=== PATIENT | female | born 1975 | race Caucasian/White ===

== ENCOUNTER 2022-09-22 13:58 | Inpatient (IN) | payer OTHER ==
[~2022-09-22] VITALS: Ht 160 cm; Wt 77.1 kg
[2022-09-22 14:41] VITALS: BP 149/98
[2022-09-22 16:20] LABS: BASOPHILS # (AUTO) 0.1 K/uL (0.00-0.22); BASOPHILS % (AUTO) 0.8 % (0.0-2.0); EOSINOPHILS # (AUTO) 0.3 K/uL (0-0.4); EOSINOPHILS % (AUTO) 2.2 % (0.0-4.0); HEMATOCRIT 32.9 % (36-48); HEMOGLOBIN 11.1 g/dL (12.0-16.0); LYMPHOCYTES # (AUTO) 2.2 K/uL (2.5-16.5); LYMPHOCYTES % (AUTO) 18.6 % (20.5-51.1); MEAN CORPUSCULAR HEMOGLOBIN 30 pg (27-31); MEAN CORPUSCULAR HGB CONC 34 g/dL (33-37); MEAN CORPUSCULAR VOLUME 88.2 fL (80-94); MONOCYTES # (AUTO) 0.7 K/uL (0.8-1.0); MONOCYTES % (AUTO) 5.7 % (1.7-9.3); NEUTROPHILS # (AUTO) 8.4 K/uL (1.8-7.7); NEUTROPHILS % (AUTO) 72.7 % (42.2-75.2); PLATELET COUNT (AUTO) 286 K/uL (140-450); RED BLOOD CELL COUNT(AUTO) 3.73 MIL/uL (4.20-5.40); WHITE BLOOD COUNT (AUTO) 11.6 K/uL (4.8-10.8)
[2022-09-22 16:21] LABS: ALBUMIN 3.7 g/dL (3.4-5.0); ANION GAP 9.9 (8-16); ASPARTATE AMINOTRANSFERASE 16 U/L (15-37); CARBON DIOXIDE 28.4 mmol/L (21-32); CHLORIDE 103 mmol/L (98-107); CREATININE 0.8 mg/dL (0.6-1.3); GFR ARICAN-AMERICAN 99 mL/min (>90); GLUCOSE 101 mg/dL (74-106); POTASSIUM 4.3 mmol/L (3.5-5.1); SODIUM SERUM 137 mmol/L (136-145); TOTAL BILIRUBIN 0.2 mg/dL (0.0-1.0); UREA NITROGEN, BLOOD 13 mg/dL (7-18)
[2022-09-22] MEDS ORDERED: HEPARIN PER PHARMACY MC PRN (18:55)
--- NOTE | 2022-09-22 18:58 | NUR ---
AMBULATORY TO BR WITH STEADY GAIT, INDEPENDENT
[2022-09-22] MEDS ORDERED: MORPHINE SULFATE 2 MG/ML SYR IVP PRN (19:30)
[2022-09-22] MEDS ORDERED: LORazepam 2 MG/ML VIAL IVP PRN (19:30)
--- NOTE | 2022-09-22 19:30 | NUR ---
Patient resting in bed, A/Ox4, chest rise and fall symmetrical, no c/o pain or s/s of distress.
[2022-09-22] MEDS: hePARIN / DEXT 5% PREMIX 250 ML IV SCH (19:54)
[2022-09-22] MEDS: NACL 0.9% 1,000 ML IV SCH (19:55)
--- NOTE | 2022-09-22 22:03 | NUR ---
Patient resting in bed, A/Ox4, chest rise and fall symmetrical, no c/o pain or s/s of distress.
[2022-09-22] MEDS ORDERED: hydrALAZINE 20 MG/ML VIAL IVP SCH (22:10)
--- NOTE | 2022-09-22 22:10 | NUR ---
Dr. Tomlinson examining patient.
--- NOTE | 2022-09-22 22:44 | NUR ---
Dr. Ferreira called to reconfirm he wanted to admit patient to Medsurg. Dr. Ferreira verbalized to change patient to admit to telemetry. Readback confirmed
[2022-09-22] MEDS: ONDANSETRON 4 MG/2 ML VIAL IVP PRN (23:42)
--- NOTE | 2022-09-23 00:05 | NUR ---
Patient resting in bed, A/Ox4, chest rise and fall symmetrical, no c/o pain or s/s of distress.
[2022-09-23] MEDS: ACETAMINOPHEN 325 MG TAB PO PRN ×2 (01:10→08:01)
--- NOTE | 2022-09-23 01:14 | NUR ---
Patient will be admitted to care of Wendy GRIFFITHS. Admited to Telemetry. Will go to room 121B. Belongings list completed. Report to Wendy GRIFFITHS. Wendy GRIFFITHS verbalized understanding of report, no further questions.
[2022-09-23 01:16] LABS: PROTHROMBIN TIME 10.5 secs (10.8-13.4)
--- NOTE | 2022-09-23 01:30 | NUR ---
PT WAS ADMITTED TO [facility] DEPARTMENT FROM [facility] WITH DIAGNOSIS OF PULMONARY EMBOLISM S/P MASTECTOMY. PT IS AOX4, YI SPEAKING, ON BED REST, ABLE TO VERBALIZE NEEDS AND ABLE TO FOLLOW COMMANDS. PT IS ON ROOM AIR AND ON REGULAR DIET. PT HAS IV ON RIGHT HAND GAUGE 20 RUNNING WITH NS AT 80ML/HR AND RIGHT AC GAUGE 18 RUNNING WITH HEPARIN AT 1400 UNIT/HR. PT HAS BOTH BREAST SURGICAL WOUND DUE TO MASTECTOMY. PT WAS ORIENTED TO HOSPITAL/ROOM, BED BUTTONS AND CALL LIGHT. ALL SAFETY MEASURES IMPLEMENTED, BED IN LOW POSITION, BED WHEELS ON LOCK AND CALL LIGHT WITHIN REACH.
--- NOTE | 2022-09-23 02:00 | NUR ---
PUT RONAL TO PT.
--- NOTE | 2022-09-23 02:20 | NUR ---
ADJUSTED HEPARIN DRIP TO 1250 UNIT/HR FROM 1400 UNIT/HR. ALL SAFETY MEASURES IMPLEMENTED, BED IN LOW POSITION, BED WHEELS ON LOCK AND CALL LIGHT WITHIN REACH.
[2022-09-23 04:00] VITALS: BP 125/69
--- NOTE | 2022-09-23 04:00 | NUR ---
PT IS ON SLEEP. CHEST RISE AND FALL SYMMETRICALLY NOTED. RESPIRATION IS EVEN AND UNLABORED. NO S/S OF RESPIRATORY DISTRESS NOTED. ALL SAFETY MEASURES IMPLEMENTED, BED IN LOW POSITION, BED WHEELS ON LOCK AND CALL LIGHT WITHIN REACH.
--- NOTE | 2022-09-23 07:38 | NUR ---
PT IS STABLE. ENDORSED PT TO MORNING NURSE FOR CONTINUITY OF CARE.
--- NOTE | 2022-09-23 07:45 | NUR ---
RECEIVED REPORT FROM NIGHTSHIFT NURSE. PT AAOX4, NO SIGNS OF DISTRESS. ON RM AIR. IV TO RIGHT HAND AND AC. PT HAS 2 LARRY DRAINS. BED IN LOWEST POSITION, CALL LIGHT PLACED WITHIN REACH, WILL CONTINUE WITH CARE.
[2022-09-23 08:00] VITALS: BP 141/69
[2022-09-23] MEDS: NACL 0.9% 1,000 ML IV SCH ×2 (08:00→20:30)
[2022-09-23] MEDS ORDERED: LABETALOL 20 MG/4 ML VIAL IVP PRN (08:20)
[2022-09-23] MEDS ORDERED: ENOXAPARIN 40 MG/0.4 ML SYR SUBQ SCH (09:00)
[2022-09-23] MEDS: ONDANSETRON 4 MG/2 ML VIAL IVP PRN (09:08)
[2022-09-23 09:14] LABS: BASOPHILS # (AUTO) 0.1 K/uL (0.00-0.22); BASOPHILS % (AUTO) 0.4 % (0.0-2.0); EOSINOPHILS # (AUTO) 0.2 K/uL (0-0.4); EOSINOPHILS % (AUTO) 1.4 % (0.0-4.0); HEMATOCRIT 30.8 % (36-48); HEMOGLOBIN 10.4 g/dL (12.0-16.0); LYMPHOCYTES # (AUTO) 2.6 K/uL (2.5-16.5); LYMPHOCYTES % (AUTO) 18.8 % (20.5-51.1); MEAN CORPUSCULAR HEMOGLOBIN 29 pg (27-31); MEAN CORPUSCULAR HGB CONC 34 g/dL (33-37); MONOCYTES # (AUTO) 0.6 K/uL (0.8-1.0); MONOCYTES % (AUTO) 4.2 % (1.7-9.3); NEUTROPHILS # (AUTO) 10.5 K/uL (1.8-7.7); NEUTROPHILS % (AUTO) 75.2 % (42.2-75.2); PLATELET COUNT (AUTO) 375 K/uL (140-450); RED BLOOD CELL COUNT(AUTO) 3.54 MIL/uL (4.20-5.40); RED CELL DISTRIBUTION WIDTH 14.2 % (11.6-13.7)
[2022-09-23 09:32] LABS: ALBUMIN 3.5 g/dL (3.4-5.0); ANION GAP 10.9 (8-16); CARBON DIOXIDE 24.7 mmol/L (21-32); CREATININE 0.8 mg/dL (0.6-1.3); POTASSIUM 3.6 mmol/L (3.5-5.1); TOTAL BILIRUBIN 0.3 mg/dL (0.0-1.0)
--- NOTE | 2022-09-23 11:45 | NUR ---
DC PLANNING ATTEMPTED TO MEET PT AT BEDSIDE TO COMPLETE ASSESSMENT, HOWEVER, PT BEING SEEN BY OFFICE MACHINE SERVICER APPRENTICE. SW TO FOLLOW
[2022-09-23] MEDS: hePARIN / DEXT 5% PREMIX 250 ML IV SCH ×2 (11:50→14:01)
--- NOTE | 2022-09-23 11:50 | NUR ---
LAB REPORTS CRITICAL VALUE, APTT: 75.7. HEPARIN ADJUSTED, WILL REASSESS APTT VALUE @1750. PT RESTING IN BED, NO SIGNS OF DISTRESS. REPORTS NO PAIN OR NAUSEA. BED IN LOWEST POSITION, CALL LIGHT PLACED WITHIN REACH. WILL CONTINUE TO MONITOR.
[2022-09-23 12:00] VITALS: BP 137/75
--- NOTE | 2022-09-23 12:51 | NUR ---
PATIENT HAS BEEN SCREENED AND CATEGORIZED LOW NUTRITION RISK. PATIENT WILL BE SEEN WITHIN 7 DAYS OF ADMISSION. 09/29/[address]
[2022-09-23 16:00] VITALS: BP 122/75
--- NOTE | 2022-09-23 19:45 | NUR ---
WHILE SAENZ RN GIVING BEDSIDE REPORTING , SHE NOTICES THE IVF IS EMPTY , SAENZ COMMANDS HER ORIENTEE RN , TO GET NEW IVF AND HOOK FF UP . Addendum: 09/24/22 at 0805 by Emma Catalan RN I ASKED SAENZ IF THE PT IS BOTH MASTECTOMY HOW COME SHE HAS IV SITE IN THERE ? AND HOW ABOUT THE BLOOD DRAW . PER SAENZ RN THE R HAND CAN BE USE FOR THE SITE AND BLOOD DRAW SINCE THE R BREAST IS NOT TO SEVERE THAN LEFT BREAST , SO THAT THE PREVIOUSLY SHIFT USE THAT SITE - WILL ENDORSE.
--- NOTE | 2022-09-23 19:50 | NUR ---
WHILE ME AND SAENZ AT BEDSIDE , WE SEEING THE ORIENTEE RN HOOKING THE NEW IVF , BUT THE ORIRNTEE , RN FORGOT TO DOCUMENT IT IN EMAR - WILL ENDORSE .
--- NOTE | 2022-09-23 19:58 | NUR ---
PTT 49.5 - NO CHANGE . WILL CONT. TO MONITOR .
[2022-09-23 20:00] VITALS: BP 134/66
--- NOTE | 2022-09-23 23:49 | NUR ---
PTT 47 - NO CHANGE
[2022-09-24] VITALS: BP 133/65
[2022-09-24 04:00] VITALS: BP 119/70
--- NOTE | 2022-09-24 04:00 | NUR ---
NO COMPLAIN MADE , WILL CONT. TO MONITOR
[2022-09-24 05:59] LABS: BASOPHILS % (AUTO) 0.4 % (0.0-2.0); EOSINOPHILS # (AUTO) 0.3 K/uL (0-0.4); EOSINOPHILS % (AUTO) 2.2 % (0.0-4.0); HEMATOCRIT 28.9 % (36-48); HEMOGLOBIN 9.6 g/dL (12.0-16.0); LYMPHOCYTES # (AUTO) 2.7 K/uL (2.5-16.5); LYMPHOCYTES % (AUTO) 21.6 % (20.5-51.1); MEAN CORPUSCULAR HEMOGLOBIN 29 pg (27-31); MEAN CORPUSCULAR HGB CONC 33 g/dL (33-37); MEAN CORPUSCULAR VOLUME 88.4 fL (80-94); MONOCYTES # (AUTO) 0.8 K/uL (0.8-1.0); MONOCYTES % (AUTO) 6.3 % (1.7-9.3); NEUTROPHILS # (AUTO) 8.6 K/uL (1.8-7.7); NEUTROPHILS % (AUTO) 69.5 % (42.2-75.2); PLATELET COUNT (AUTO) 356 K/uL (140-450); RED BLOOD CELL COUNT(AUTO) 3.27 MIL/uL (4.20-5.40); RED CELL DISTRIBUTION WIDTH 14.7 % (11.6-13.7); WHITE BLOOD COUNT (AUTO) 12.4 K/uL (4.8-10.8)
--- NOTE | 2022-09-24 06:00 | NUR ---
SLEEPING , BUT AWAKEABLE , NO COMPLAIN MADE , NO S/SX OF ACUTE DISTRESS NOTED .
[2022-09-24 07:14] LABS: ALBUMIN 3.2 g/dL (3.4-5.0); ANION GAP 10.9 (8-16); CARBON DIOXIDE 24.9 mmol/L (21-32); CREATININE 0.7 mg/dL (0.6-1.3); POTASSIUM 3.8 mmol/L (3.5-5.1); TOTAL BILIRUBIN 0.2 mg/dL (0.0-1.0)
--- NOTE | 2022-09-24 07:35 | NUR ---
ENDORSED PT FOR CONT. TO CARE , ENDORSE I GOT 50CC TOTAL OF 4 J P , STILL MORE DARK DISCHARGE ON THE LEFT LARRY
--- NOTE | 2022-09-24 07:35 | NUR ---
[facility]. PT IN STABLE CONDITION, HEPARIN DRIP RUNNING 1090 UNITS
[2022-09-24 08:00] VITALS: BP 151/85
[2022-09-24] MEDS ORDERED: APIX5TAB PO (08:27)
--- NOTE | 2022-09-24 08:30 | NUR ---
DR. CONNELL IN TO SEE THE PT. MD ASSESSMENT DONE, POSSIBLE DISCHARGE LATER TODAY IF CLEARED BY ONCOLOGIST/PLASTICS DESIGN ENGINEER DR. TREJO. CONTINUE HEPARIN DRIP.
[2022-09-24] MEDS ORDERED: CEPH-588 PO (08:50)
[2022-09-24] MEDS: NACL 0.9% 1,000 ML IV SCH (09:44)
[2022-09-24 12:00] VITALS: BP 155/79
--- NOTE | 2022-09-24 13:49 | NUR ---
MEDICATED PRN TYLENOL, REASSESSED PT SURGICAL INCISIONS AND DRAIN SITE, ECCHYMOSIS NOTED RIGHT LOWER CHEST AREA, NO EXCESS DRAINAGE NOTED AT DRAINAGE SITES. HESHAM WARD
[2022-09-24] MEDS: ACETAMINOPHEN 325 MG TAB PO PRN (13:54)
--- NOTE | 2022-09-24 14:10 | NUR ---
DR. TREJO AT THE BEDSIDE WITH PT, PER , PT OKAY TO DISCHARGE WITH [facility]. PT TO FOLLOW UP WITH ONCOLOGIST OUTPATIENT.
[2022-09-24 14:40] VITALS: BP 155/79
--- NOTE | 2022-09-24 16:15 | NUR ---
ARELI CARVAJAL CALLED [facility] [place] [id number] [facility] [id number] SPOKE WITH STUART AND SHE HELPED ME MAKE AN APPOINTMENT FOR 09/29/2022 AT 7610. INFORMED PATIENT OF THE DR APPOINTMENT.
--- NOTE | 2022-09-24 16:15 | NUR ---
SPOKE TO PT AND PT'S DAUGHTER REGARDING PT'S DISCHARGE PAPERWORK AND DISCHARGE MEDICATIONS. PER PT, DAUGHTER WILL ARRIVE IN 30 MINS TO TRANSPORT PT HOME. IV'S REMOVED AND DRESSED, PT ABLE TO CHANGE WITHOUT ASSIST.
--- NOTE | 2022-09-24 16:20 | NUR ---
DRAINED LARRY DRAINS, R1: 15ML; R2: 5ML; L1: 10ML; L2:10ML
== END 2022-09-24 17:00 | disposition home or self-care (01) | DRG 134 ==
LOC: MED 13:58 → MMU 19:31 → MTU 09-23 00:31
PROVIDERS: ADMIT Internal Medicine; ATTEND Internal Medicine
DX: I26.99 Other pulmonary embolism without acute cor pulmonale (principal); R71.0 Precipitous drop in hematocrit; E66.9 Obesity, unspecified; Z20.822 Contact with and (suspected) exposure to COVID-19; Z90.13 Acquired absence of bilateral breasts and nipples; Z88.2 Allergy status to sulfonamides; Z79.899 Other long term (current) drug therapy; Z68.30 Body mass index [BMI] 30.0-30.9, adult; Z15.01 Genetic susceptibility to malignant neoplasm of breast; Z85.3 Personal history of malignant neoplasm of breast
CPT/HCPCS: 36415; 71275; 80053; 83735; 84484; 85025; 85220; 85300; 85305; 85610; 85730; 87081; 93970; 96374; 96375; 99291; J0360; J0690; J1644; J2270; J2405; J7060; Q0092; Q9967